=== PATIENT | female | born 1990 | race Caucasian/White ===

== ENCOUNTER 2017-05-27 15:37 | Inpatient (IN) | payer OTHER ==
[~2017-05-27] VITALS: Ht 162.6 cm; Wt 60.8 kg
[~2017-05-27 15:37] MED LIST: ATARAX,VISTARIL50 MG PO; AZO-SULFISOXAZO1 TA1 PO; CARBIDOPA/LEVOD1 TA1 PO; KROGER NIC21 MG/24 H T; METHOCARBAMOL750 M1 PO; ONDANSETRON HYDR4 M1 PO; SEPTRA DS 800 M1 TAB PO; THERA TABS1 TAB PO; VITAMIN B-11 TAB PO; ZOFRAN 4 MG ED2 TAB PO
[2017-05-27 16:30] VITALS: BP 103/65
[2017-05-27 16:55] VITALS: BP 103/65
[2017-05-27 17:00] LABS: BASO % 0.4 % (0.0-1.0); EOS # 0.1 10*3/uL (0.0-0.4); EOS % 1.2 % (1.0-4.0); HEMATOCRIT 36.9 % (37.0-47.0); HEMOGLOBIN 12.6 g/dl (12.0-16.0); LYMPH # 1.2 10*3/uL (1.3-4.4); LYMPH % 24.7 % (27.0-41.0); MEAN CELL VOLUME 87.9 fl (81.0-99.0); MEAN CORPUSCULAR HGB CONC 34.1 g/dl (33.0-37.0); MEAN PLATELET VOLUME 8.9 fl (9.6-12.3); MONO # 0.5 10*3/uL (0.1-1.0); MONO % 10.8 % (3.0-9.0); NEUT # 3.1 10*3/uL (2.3-7.9); NEUT % 62.5 % (47.0-73.0); PLATELET COUNT AUTOMATED 175 10*3/uL (130-400); RED CELL DISTRI WIDTH 12.8 % (0-14.5); WHITE BLOOD COUNT 4.9 10*3/uL (4.8-10.8)
[2017-05-27 17:07] LABS: INTERNATIONAL NORM RATIO 0.9 (2.0-3.5)
[2017-05-27 17:22] LABS: ALBUMIN 3.6 gm/dl (3.1-4.5); ALKALINE PHOSPHATASE 61 U/L (45-117); BUN 14 mg/dl (7-24); CHLORIDE 97 mmol/L (98-107); CREATININE 0.71 mg/dL (0.55-1.02); POTASSIUM 4.1 mmol/L (3.5-5.1); SGOT/AST 34 IU/L (3-35); SGPT/ALT 43 U/L (12-78); SODIUM 132 mmol/L (136-145)
[2017-05-27 17:34] LABS: BETA-HCG, QUANT < 1.0 mIU/mL (1-3); ETHYL ALCOHOL < 3.0 mg/dl (<3)
[2017-05-27] MEDS ORDERED: VALTREX500 MG PO (17:49)
[2017-05-27] MEDS ORDERED: VITAMIN D350000 UNIT PO (17:51)
[2017-05-27] MEDS ORDERED: MULTIVITAMINS1 EAC6 PO (17:52)
[2017-05-27 17:53] LABS: BILIRUBIN NEGATIVE (NEGATIVE); BLOOD NEGATIVE (NEGATIVE); CLARITY CLEAR (CLEAR); COLOR YELLOW (YELLOW); GLUCOSE NEGATIVE (NEGATIVE); KETONE NEGATIVE (NEGATIVE); LEUKO ESTERASE TRACE (NEGATIVE); NITRITE NEGATIVE (NEGATIVE); SPECIFIC GRAVITY 1.015 (1.005-1.030); UROBILINOGEN 0.2 E.U./dl (0.2-1.0)
[2017-05-27] MEDS ORDERED: VITAMIN B121000 MC1 PO (17:53)
[2017-05-27] MEDS ORDERED: BIOTIN1 M2 PO (17:53)
[2017-05-27 17:57] LABS: URINE AMPHETAMINES > 1000 (1000ng/ml); URINE BARBITURATES < 200 (200ng/ml); URINE BENZODIAZEPINES < 200 (200ng/ml); URINE CANNABINOIDS (THC) < 50 (50ng/ml); URINE COCAINE < 300 (300ng/ml); URINE METHADONE < 300 (300ng/ml); URINE OPIATES > 300 (300ng/ml)
[2017-05-27 17:59] LABS: URINE PHENCYCLIDINE < 25 (25ng/ml)
[2017-05-27 18:03] LABS: BACTERIA 3+; EPITHELIAL CELLS TNTC
[2017-05-27 20:00] VITALS: BP 108/57
[2017-05-28] VITALS: BP 100/45
[2017-05-28 08:00] VITALS: BP 90/54
[2017-05-28 12:00] VITALS: BP 92/50
[2017-05-28 16:00] VITALS: BP 90/60
[2017-05-28 20:00] VITALS: BP 92/54
[2017-05-29] VITALS: BP 83/50
[2017-05-29 08:00] VITALS: BP 86/53
[2017-05-29 12:00] VITALS: BP 98/53
[2017-05-29 16:00] VITALS: BP 91/54
[2017-05-29 20:00] VITALS: BP 98/56
[2017-05-30] VITALS: BP 102/43
[2017-05-30 08:00] VITALS: BP 96/48
[2017-05-30] MEDS ORDERED: ZOFRAN 4 MG ED2 TAB PO (09:56)
[2017-05-30] MEDS ORDERED: ATARAX,VISTARIL50 MG PO (09:56)
== END 2017-05-30 10:45 | disposition home or self-care (01) | DRG 897 ==
LOC: 5E 15:37 → 4E 15:37
PROVIDERS: Internal Medicine Hospice and Palliative Medicine
DX: F11.23 Opioid dependence with withdrawal (principal); E87.1 Hypo-osmolality and hyponatremia; E87.8 Other disorders of electrolyte and fluid balance, not elsewhere classified; A60.00 Herpesviral infection of urogenital system, unspecified; F15.10 Other stimulant abuse, uncomplicated; F41.1 Generalized anxiety disorder; F17.200 Nicotine dependence, unspecified, uncomplicated; B18.2 Chronic viral hepatitis C; R73.9 Hyperglycemia, unspecified; R00.0 Tachycardia, unspecified; Z71.6 Tobacco abuse counseling; Z81.8 Family history of other mental and behavioral disorders; Z80.0 Family history of malignant neoplasm of digestive organs; Z79.899 Other long term (current) drug therapy